=== PATIENT | female | born 1970 | race Caucasian/White ===

== ENCOUNTER 2018-07-15 13:47 | Emergency (ER) | payer BC ==
[~2018-07-15] VITALS: Ht 180.3 cm; Wt 123.8 kg
[~2018-07-15 13:47] MED LIST: FERROUS FUMARA324 MG PO; FLAGYL500 MG PO; HYDROCHLOROTHIA25 MG PO; LISINOPRIL10 MG PO; METOCLOPRAMIDE10 MG PO; NADOLOL20 MG PO; OMEPRAZOLE40 MG PO; PROMETHAZINE HC25 M1 PO; TESSALON PERLE100 MG PO; TOPIRAMATE25 MG PO; TYLENOL WITH C1 EACH PO; VENLAFAXINE HCL75 MG PO; VITAMIN C1000 MG PO; [UNRECOGNIZED DRUG - OTHER] PO
[2018-07-15] MEDS ORDERED: ONDANSETRON HCL INJ 2 MG/ML VIAL IV STA (14:04)
[2018-07-15] MEDS ORDERED: SODIUM CHLORIDE 0.9% 1000ML 1,000 ML IV STA (14:04)
[2018-07-15] MEDS ORDERED: ASPIRIN 81 MG CHEW TAB PO ONE (14:15)
--- NOTE | 2018-07-15 14:48 | Diagnostic Imaging Report ---
EXAM: XR CHEST 1 VIEW DATE: 07/15/2018 2:04 PM INDICATION: DISI, short of breath COMPARISON: None FINDINGS: Lines and Tubes: None Heart and Mediastinum: No acute cardiomediastinal findings. Lungs and Pleura: No significant pleural effusion, pneumothorax, or focal consolidation. Bones and Soft Tissues: No acute findings. IMPRESSION: 1. No acute cardiopulmonary findings. Signed by: Dr. Mike Piper MD on 07/15/2018 2:44 PM
--- NOTE | 2018-07-15 14:58 | Diagnostic Imaging Report ---
Examination: CT head without contrast Clinical Indication: Headache. Dizziness.. Technique: Transaxial noncontrast images from the skull base through the vertex were obtained. Sagittal and coronal reformatted images were done. Dose modulation, iterative reconstruction, and/or weight based adjustment of the mA/kV was utilized to reduce the radiation dose to as low as reasonably achievable. Comparison: None. Findings: Scalp: No abnormalities. Bones: Intact. No fractures. No blastic or lytic lesions. Brain sulci: Appropriate for patient's age. Ventricles: Normal in size and configuration. No hydrocephalus. Extra-axial space: No abnormalities. Parenchyma: No abnormal densities. No masses, hemorrhage, or acute or chronic cortical based vascular insults. Suprasellar region: No abnormalities. Craniocervical junction: The foramen magnum is patent. No Chiari one malformation. Incidental findings: Mild circumferential inflammatory mucosal thickening of the partially visualized left maxillary sinus. Partially visualized prior endoscopic sinus surgery with bilateral antrectomy. Impression: No acute intracranial abnormality. Signed by: Dr. Zoë Bautista M.D. on 07/15/2018 2:55 PM
[2018-07-15 16:20] LABS: BASOPHILS # (AUTO) 0.1 (0.0-0.1); BASOPHILS % 0.7 % (0.0-1.0); EOSINOPHILS # (AUTO) 0.3 (0.0-0.4); EOSINOPHILS % 3.2 % (0.0-6.0); HEMATOCRIT 41.9 % (34.2-44.1); HEMOGLOBIN 13.4 g/dL (12.0-16.0); LYMPHOCYTES # (AUTO) 1.8 (1.0-3.2); LYMPHOCYTES % 18.6 % (18.0-39.1); MEAN CORPUSCULAR HEMOGLOBIN 25.3 pg (28-32); MEAN CORPUSCULAR VOLUME 79.2 fL (81-99); MONOCYTES # (AUTO) 0.9 (0.2-0.8); NEUTROPHILS # (AUTO) 6.7 (2.1-6.9); PLATELET COUNT 478 x10e3/uL (140-360); RED BLOOD COUNT 5.29 x10e6/uL (3.6-5.1); RED CELL DISTRIBUTION WIDTH 14.9 % (11.7-14.4)
[2018-07-15 16:38] LABS: INR 0.93; PARTIAL THROMBOPLASTIN TIME 31.2 seconds (23.8-35.5); PROTHROMBIN TIME 13.3 seconds (11.9-14.5)
[2018-07-15 16:44] LABS: CLARITY,URINE SL CLOUDY (CLEAR)
[2018-07-15 16:45] LABS: BILIRUBIN,URINE 2+ (NEGATIVE); COLOR,URINE STRAW (YELLOW); KETONES,URINE TRACE (NEGATIVE); LEUKOCYTE ESTERASE ,URINE TRACE (NEGATIVE); NITRITE,URINE NEGATIVE (NEGATIVE); PROTEIN,URINE DIPSTICK NEGATIVE (NEGATIVE); URINE UROBILINOGEN 1 mg/dL (0.2 - 1)
[2018-07-15 16:45] LABS: ALANINE AMINOTRANSFERASE 356 IU/L (0-55); ALBUMIN 4.1 g/dL (3.5-5.0); ALKALINE PHOSPHATASE 249 IU/L (40-150); ANION GAP 19.5 mmol/L (8-16); BLOOD UREA NITROGEN 16 mg/dL (7-26); BUN/CREATININE RATIO 9 (6-25); CALCIUM 9.4 mg/dL (8.4-10.2); CARBON DIOXIDE 18 mmol/L (22-29); CHLORIDE 104 mmol/L (98-107); CREATINE KINASE 40 IU/L (29-168); CREATININE, SERUM 1.75 mg/dL (0.57-1.11); EST GLOMERULAR FILTRATION RATE 31 ML/MIN (60-); GLUCOSE 114 mg/dL (74-118); LIPASE 46 U/L (8-78); POTASSIUM 3.5 mmol/L (3.5-5.1); SODIUM 138 mmol/L (136-145)
[2018-07-15 16:58] LABS: BACTERIA,URINE MANY /HPF; EPITHELIAL CELLS,URINE MODERATE /LPF; TRANSITIONAL EPI CELLS,URINE FEW; WBC,URINE (MAN) 0-5 /HPF (0-5)
[2018-07-15] MEDS ORDERED: KETOROLAC TROMETHAMINE 30 MG/ML VIAL IV ONE (17:00)
[2018-07-15] MEDS ORDERED: MAGNESIUM/ALUMINUM/SIMETHICONE 30 ML UDC PO ONE (17:30)
[2018-07-15] MEDS ORDERED: LIDOCAINE VISC 2% SOLN 15 ML UDC PO ONE (17:30)
[2018-07-15] MEDS ORDERED: BELLADONNA ALK/PHENOBARBITAL 5 ML UDC PO SCH (21:00)
== END 2018-07-15 19:17 | disposition home or self-care (01) ==
LOC: ER 13:47
DX: R42 Dizziness and giddiness (principal); R10.12 Left upper quadrant pain; G44.89 Other headache syndrome
CPT/HCPCS: 36415; 70450; 71045; 80053; 81001; 82550; 82553; 83690; 83880; 84484; 85025; 85610; 85730; 87086; 93005; 99284; J1885; J2405; J7030

== ENCOUNTER 2022-05-05 09:41 | Emergency (ER) | payer BC, MEDICARE ==
[~2022-05-05] VITALS: Ht 180.3 cm; Wt 123.8 kg
[2022-05-05 11:44] LABS: CLARITY,URINE TURBID (CLEAR); COLOR,URINE YELLOW (YELLOW)
[2022-05-05 11:45] LABS: KETONES,URINE NEGATIVE (NEGATIVE); LEUKOCYTE ESTERASE ,URINE TRACE (NEGATIVE); NITRITE,URINE NEGATIVE (NEGATIVE); PROTEIN,URINE DIPSTICK 1+ (NEGATIVE); URINE UROBILINOGEN 0.2 mg/dL (0.2 - 1)
[2022-05-05] MEDS ORDERED: CEFPODOXIME PR200 MG PO (11:55)
[2022-05-05 11:57] LABS: BACTERIA,URINE MODERATE /HPF; EPITHELIAL CELLS,URINE MODERATE /LPF; RBC,URINE 0-5 /HPF (0-5)
== END 2022-05-05 11:59 | disposition home or self-care (01) ==
LOC: ER 09:44
DX: R30.0 Dysuria (principal); N39.0 Urinary tract infection, site not specified; I10 Essential (primary) hypertension; K21.9 Gastro-esophageal reflux disease without esophagitis; F41.9 Anxiety disorder, unspecified; G44.059 Short lasting unilateral neuralgiform headache with conjunctival injection and tearing (SUNCT), not intractable
CPT/HCPCS: 81001; 99283

== ENCOUNTER 2024-07-28 17:54 | Emergency (ER) | payer BC ==
[~2024-07-28] VITALS: Ht 180.3 cm; Wt 131.5 kg
[~2024-07-28 17:54] MED LIST changes: +CEFPODOXIME PR200 MG PO
[2024-07-28 18:00] VITALS: TEMP 98.7
[2024-07-28 18:46] LABS: BASOPHILS # (AUTO) 0.1 (0.0-0.1); EOSINOPHILS # (AUTO) 0.1 (0.0-0.4); LYMPHOCYTES # (AUTO) 2.5 (1.0-3.2); LYMPHOCYTES % 25.9 % (18.0-39.1); MEAN CORPUSCULAR HEMOGLOBIN 20.2 pg (28-32); MEAN CORPUSCULAR HGB CONC 28.9 g/dL (31-35); MEAN CORPUSCULAR VOLUME 69.7 fL (81-99); MONOCYTES # (AUTO) 0.9 (0.2-0.8); MONOCYTES % 8.7 % (4.4-11.3); NEUTROPHILS # (AUTO) 6.1 (2.1-6.9); NEUTROPHILS % 63.1 % (38.7-80.0); PLATELET COUNT 437 x10e3/uL (140-360); RED BLOOD COUNT 5.45 x10e6/uL (3.6-5.1); RED CELL DISTRIBUTION WIDTH 15.8 % (11.7-14.4); WHITE BLOOD COUNT 9.72 x10e3/uL (4.8-10.8)
[2024-07-28] MEDS: Morphine 4mg INJECTION 4 MG/ML INJ IV ONE (18:51)
[2024-07-28] MEDS: ONDANSETRON HCL INJ 2MG/ML 2ML 2 MG/ML VIAL IV STA (18:51)
[2024-07-28] MEDS: SODIUM CHLORIDE 0.9% 1000ML 1,000 ML IV ONE (18:52)
[2024-07-28 19:05] LABS: ALBUMIN 4.4 g/dL (3.5-5.0); ALBUMIN/GLOBULIN RATIO 1.1 (0.8-2.0); ANION GAP 18.8 mmol/L (8-16); BILIRUBIN,TOTAL 0.6 mg/dL (0.2-1.2); CALCIUM 10.1 mg/dL (8.4-10.2); POTASSIUM 3.8 mmol/L (3.5-5.1); TOTAL PROTEIN 8.4 g/dL (6.5-8.1)
[2024-07-28] MEDS ORDERED: IOPAMIDOL 370 MG/ML 100 ML INFUS..BTL INJ ONE (19:15)
[2024-07-28 21:00] VITALS: PULSE 99; RESP 19
[2024-07-28 21:52] LABS: BILIRUBIN,URINE NEGATIVE (NEGATIVE); CLARITY,URINE CLEAR (CLEAR); COLOR,URINE ORANGE (YELLOW); GLUCOSE, URINE NEGATIVE (NEGATIVE); KETONES,URINE NEGATIVE (NEGATIVE); LEUKOCYTE ESTERASE ,URINE NEGATIVE (NEGATIVE); NITRITE,URINE POSITIVE (NEGATIVE); PH,URINE 6 (5 - 7); PROTEIN,URINE DIPSTICK NEGATIVE (NEGATIVE); URINE UROBILINOGEN 0.2 mg/dL (0.2 - 1)
[2024-07-28 21:58] LABS: BACTERIA,URINE FEW /HPF; EPITHELIAL CELLS,URINE FEW /LPF; RBC,URINE 0-5 /HPF (0-5)
[2024-07-28] MEDS ORDERED: ONDANSETRON ODT4 MG SL (22:18)
[2024-07-28] MEDS ORDERED: CEFDINIR300 MG PO (22:18)
[2024-07-28 22:27] VITALS: BP 125/57; PULSE 99; RESP 19; TEMP 98.4; O2SAT 100
== END 2024-07-28 22:29 | disposition home or self-care (01) ==
LOC: ER 18:09
DX: R11.2 Nausea with vomiting, unspecified (principal); N39.0 Urinary tract infection, site not specified; R19.7 Diarrhea, unspecified; K57.90 Diverticulosis of intestine, part unspecified, without perforation or abscess without bleeding; R10.32 Left lower quadrant pain; I10 Essential (primary) hypertension; K44.9 Diaphragmatic hernia without obstruction or gangrene; K21.9 Gastro-esophageal reflux disease without esophagitis; F41.9 Anxiety disorder, unspecified; F32.A Depression, unspecified; M19.09 Primary osteoarthritis, other specified site
CPT/HCPCS: 36415; 74177; 80053; 81001; 82550; 83690; 85025; 99284; J2270; J2405; J2470; J7030; Q9967